=== PATIENT | male | born 1990 | race Caucasian/White ===

== ENCOUNTER 2019-06-24 10:44 | Emergency (ER) | payer BC ==
[2019-06-24 11:32] VITALS: BP 137/77
--- NOTE | 2019-06-24 14:01 | UC ---
FLU HPI - HPI Summary HPI Summary: 28-year-old male presenting with complaints of nasal congestion, sore throat, and mild dry cough since yesterday. Notes mild body aches. Denies fever and chills. Denies shortness breath and wheezing. Denies nausea and vomiting. Patient states he is concerned for the flu and would like to be tested because he has a young niece at home. Taking DayQuil for symptom relief. - History of Current Complaint Chief Complaint: UCGeneralIllness Stated Complaint: HEADACHE SORE THROAT NAUSEA CONGESTION Hx Obtained From: Patient Pain Intensity: 0 - Allergy/Home Medications Allergies/Adverse Reactions: Allergies Allergy/AdvReac Type Severity Reaction Status Date / Time No Known Allergies Allergy Verified 10/17/15 11:42 Home Medications: Home Medications Dm/PE/Acetaminophen/Chlorphenr [Cold Multi-Symptom Daytim 5-2-10-325 mg] 1 carmen PO ONCE 06/24/19 [History Confirmed 06/24/19] PMH/Surg Hx/FS Hx/Imm Hx Previously Healthy: Yes - Surgical History Surgical History: Yes Surgery Procedure, Year, and Place: Left Ankle Surgery.. pins placed after a fracture - Family History Known Family History: Positive: None, Non-Contributory - Social History Alcohol Use: None Substance Use Type: None Smoking Status (MU): Never Smoked Tobacco Amount Used/How Often: 1 can per week Length of Time of Smoking/Using Tobacco: ~ 8 years Review of Systems All Other Systems Reviewed And Are Negative: Yes Constitutional: Positive: Negative ENT: Positive: Sore Throat, Sinus Congestion Respiratory: Positive: Cough. Negative: Shortness Of Breath Cardiovascular: Positive: Negative Gastrointestinal: Positive: Negative Musculoskeletal: Positive: Myalgia Neurological/Mental Status: Positive: Negative Physical Exam - Summary Physical Exam Summary: Vital Signs Reviewed: Yes A+Ox3, no distress, well-appearing Eyes: Conjunctiva Clear ENT: Hearing grossly normal, TM x 2 clear, moist, uvula midline, no exudate, no erythema Neck: Positive: Supple Respiratory: Positive: No respiratory distress, No accessory muscle use + CTA throughout no w/r Cardiovascular: RRR nl s1, s2 no m/r Musculoskeletal Exam: LUNA x 4 without difficulty Neurological: Positive: Alert Psychological: Positive: age appropriate behavior Skin: Positive: no rash, no ecchymosis Vital Signs: Initial Vital Signs Temp 99.2 F 06/24/19 11:28 Pulse 82 06/24/19 11:28 Resp 18 06/24/19 11:28 BP 137/77 06/24/19 11:28 Pulse Ox 98 06/24/19 11:28 Lab Results 06/24/19 Range/Units 14:19 Influenza A (Rapid) Negative (Negative) Influenza B (Rapid) Negative (Negative) Flu Course/Dx - Course Course Of Treatment: Negative rapid flu. Discussed viral illness with patient and instructed to continue symptomatic treatment. Instructed to follow up with PCP if symptoms worsen or persist. Patient was understanding and agreed with the treatment plan. - Differential Dx/Diagnosis Differential Diagnosis/HQI/PQRI: Influenza, Upper Respiratory Infection Provider Diagnosis: URI (upper respiratory infection) Discharge ED - Sign-Out/Discharge Documenting (check all that apply): Patient Departure All imaging exams completed and their final reports reviewed: No Studies - Discharge Plan Condition: Stable Disposition: HOME Patient Education Materials: Upper Respiratory Infection (ED) Referrals: Adama Wolfe MD [Primary Care Provider] - If Needed Additional Instructions: You tested negative for the flu today. You may continue to take over the counter cough and cold medications for your cold symptoms. Get plenty of rest and fluids. Follow up with your primary care provider if your symptoms worsen or do not resolve within 7-10 days. - Billing Disposition and Condition Condition: STABLE Disposition: Home
[2019-06-24 14:31] LABS: Influenza A Molecular Negative (Negative); Influenza B Molecular Negative (Negative)
== END 2019-06-24 14:54 | disposition home or self-care (01) ==
LOC: UCEAST 10:44
DX: J06.9 Acute upper respiratory infection, unspecified (principal)
CPT/HCPCS: 99201; G0463